=== PATIENT | female | born 1945 | race Hispanic/Latino ===

== ENCOUNTER 2021-08-19 15:47 | Inpatient (IN) | payer MEDICARE, BC ==
[2021-08-19] MEDS ORDERED: HYDROcodone/Acetaminophen 5/325 mg Tablet PO PRN (20:48)
[2021-08-19] MEDS ORDERED: Ondansetron ODT 4 MG TAB SL PRN (20:50)
[2021-08-19] MEDS ORDERED: HumaLOG 300 UNITS/3 ML VIAL SC PRN ×2 (20:50)
[2021-08-19] MEDS ORDERED: Dextrose 50% Abboject 50 ML SYRINGE SLOW IVP PRN (20:50)
[2021-08-19] MEDS: TICAGRELOR 90 MG TABLET PO SCH (21:33)
[2021-08-20 03:55] LABS: SARS-CoV-2 NAA Rapid Test Not Detected (NotDetected)
[2021-08-20] MEDS: Levothyroxine Sodium 50 MCG TAB PO SCH (05:31)
[2021-08-20 06:24] LABS: ALT (SGPT) 22 U/L (8-55); AST (SGOT) 41 U/L (5-34); Albumin 2.9 g/dL (3.4-4.8); Alkaline Phosphatase 49 U/L (40-110); Anion Gap 12 mmol/L (10-20); BUN (Urea Nitrogen) 11 mg/dL (9.8-20.1); Calc. Creatinine Clearance 43 mL/min (70-130); Calcium 7.9 mg/dL (7.8-10.44); Carbon Dioxide 21 mmol/L (23-31); Chloride 106 mmol/L (98-107); Globulin 2.9 g/dL (2.4-3.5); Glucose 93 mg/dL (83-110); Potassium 3.6 mmol/L (3.5-5.1); Protein, Total 5.8 g/dL (5.8-8.1); Sodium 135 mmol/L (136-145)
[2021-08-20 06:42] LABS: Hemoglobin 10.6 g/dL (12.0-16.0); Mean Corpuscular HGB CONC 32.2 g/dL (32.0-36.0); Mean Corpuscular Hemoglobin 44.2 pg (27.0-31.0); Mean Platelet Volume 8.6 fL (7.4-10.4); Platelet Count 75 thou/uL (130-400); RBC Distribution Width 13.9 % (11.5-14.5)
[2021-08-20 06:43] LABS: Anisocytosis SLIGHT = 6-15 cells (100X) (0-5/hpf); Hypochromia SLIGHT = 6-15 cells (100X) (0-5/hpf); Lymphocytes 38 % (21-51); MDiff Complete? YES; Macrocytosis MODERATE=16-30 cells (100X) (0-5/hpf); Monocytes 6 % (0-10); Neutrophil 56 % (42-75); Platelet Morphology Comment Appears Decreased
[2021-08-20 06:45] LABS: Manual Diff?? YES
[2021-08-20 06:48] LABS: White Blood Cell (WBC) Count 1.9 thou/uL (4.8-10.8)
[2021-08-20] MEDS: PALBOCICLIB 100 MG PO SCH (08:44)
[2021-08-20] MEDS: Ferrous Sulfate 325 MG TAB PO SCH (08:45)
[2021-08-20] MEDS: TICAGRELOR 90 MG TABLET PO SCH ×2 (08:45→20:31)
[2021-08-20] MEDS: Amiodarone 200 MG TAB PO SCH (08:45)
[2021-08-20] MEDS: Atorvastatin Calcium 40 MG TAB PO SCH (08:45)
[2021-08-20] MEDS: Folic Acid 1 MG TAB PO SCH (08:45)
[2021-08-20] MEDS ORDERED: Enoxaparin Sodium 40 MG/0.4 ML SYRINGE SC SCH (09:00)
[2021-08-20] MEDS ORDERED: LETROZOLE 2.5 MG PO SCH (09:00)
[2021-08-20] MEDS ORDERED: Letrozole 2.5 MG TAB PO SCH (16:15)
[2021-08-21] MEDS: Levothyroxine Sodium 50 MCG TAB PO SCH (05:35)
[2021-08-21] MEDS: PALBOCICLIB 100 MG PO SCH (08:16)
[2021-08-21] MEDS: Amiodarone 200 MG TAB PO SCH (08:29)
[2021-08-21] MEDS: Ferrous Sulfate 325 MG TAB PO SCH (08:29)
[2021-08-21] MEDS: Letrozole 2.5 MG TAB PO SCH (08:29)
[2021-08-21] MEDS: Atorvastatin Calcium 40 MG TAB PO SCH (08:30)
[2021-08-21] MEDS: Folic Acid 1 MG TAB PO SCH (08:30)
[2021-08-21] MEDS: TICAGRELOR 90 MG TABLET PO SCH (08:31)
[2021-08-22] MEDS: Levothyroxine Sodium 50 MCG TAB PO SCH (05:04)
[2021-08-22] MEDS: PALBOCICLIB 100 MG PO SCH (07:15)
[2021-08-22] MEDS: Letrozole 2.5 MG TAB PO SCH (07:27)
[2021-08-22] MEDS: Folic Acid 1 MG TAB PO SCH (07:27)
[2021-08-22] MEDS: Atorvastatin Calcium 40 MG TAB PO SCH (07:27)
[2021-08-22] MEDS: Ferrous Sulfate 325 MG TAB PO SCH (07:27)
[2021-08-22] MEDS: Amiodarone 200 MG TAB PO SCH (07:27)
[2021-08-22] MEDS: Fluconazole 100 MG TAB PO SCH (17:39)
[2021-08-23] MEDS: Levothyroxine Sodium 50 MCG TAB PO SCH (05:15)
[2021-08-23] MEDS: Letrozole 2.5 MG TAB PO SCH (07:57)
[2021-08-23] MEDS: Folic Acid 1 MG TAB PO SCH (07:58)
[2021-08-23] MEDS: Ferrous Sulfate 325 MG TAB PO SCH (07:58)
[2021-08-23] MEDS: Atorvastatin Calcium 40 MG TAB PO SCH (07:58)
[2021-08-23] MEDS: PALBOCICLIB 100 MG PO SCH (07:59)
[2021-08-23] MEDS: Amiodarone 200 MG TAB PO SCH (07:59)
[2021-08-23] MEDS: Fluconazole 100 MG TAB PO SCH (15:50)
[2021-08-24] MEDS: Levothyroxine Sodium 50 MCG TAB PO SCH (05:39)
[2021-08-24] MEDS: Letrozole 2.5 MG TAB PO SCH (08:18)
[2021-08-24] MEDS: Amiodarone 200 MG TAB PO SCH (08:18)
[2021-08-24] MEDS: Folic Acid 1 MG TAB PO SCH (08:18)
[2021-08-24] MEDS: Ferrous Sulfate 325 MG TAB PO SCH (08:18)
[2021-08-24] MEDS: Atorvastatin Calcium 40 MG TAB PO SCH (08:19)
[2021-08-24] MEDS: PALBOCICLIB 100 MG PO SCH (08:20)
[2021-08-24] MEDS ORDERED: Acetaminophen 325 MG TAB PO PRN (14:51)
[2021-08-24] MEDS: Fluconazole 100 MG TAB PO SCH (15:03)
[2021-08-25] MEDS: Levothyroxine Sodium 50 MCG TAB PO SCH (05:18)
[2021-08-25] MEDS: Ergocalciferol 1.25 MG(50,000 UNITS) CAP PO SCH (08:42)
[2021-08-25] MEDS: Ferrous Sulfate 325 MG TAB PO SCH (08:42)
[2021-08-25] MEDS: Atorvastatin Calcium 40 MG TAB PO SCH (08:42)
[2021-08-25] MEDS: Folic Acid 1 MG TAB PO SCH (08:42)
[2021-08-25] MEDS: Letrozole 2.5 MG TAB PO SCH (08:43)
[2021-08-25] MEDS: PALBOCICLIB 100 MG PO SCH (08:43)
[2021-08-25] MEDS: Amiodarone 200 MG TAB PO SCH (08:43)
[2021-08-25] MEDS ORDERED: Acetaminophen 325 MG TAB PO PRN (09:06)
[2021-08-25] MEDS ORDERED: HYDROcodone/Acetaminophen 5/325 mg Tablet PO PRN (09:06)
[2021-08-25] MEDS: Fluconazole 100 MG TAB PO SCH (16:54)
[2021-08-26] MEDS: Levothyroxine Sodium 50 MCG TAB PO SCH (05:14)
[2021-08-26 06:51] LABS: Anion Gap 13 mmol/L (10-20); BUN (Urea Nitrogen) 14 mg/dL (9.8-20.1); Calc. Creatinine Clearance 39 mL/min (70-130); Calcium 8.2 mg/dL (7.8-10.44); Carbon Dioxide 25 mmol/L (23-31); Chloride 98 mmol/L (98-107); Glucose 92 mg/dL (83-110); Sodium 132 mmol/L (136-145)
[2021-08-26 07:07] LABS: #Lymphocytes 0.5 thou/uL (1.20-3.40); #Monocytes 0.2 thou/uL (0.11-0.59); #Neutrophils 0.9 thou/uL (1.40-6.50); %Basophils 1.6 % (0.0-1.0); %Eosinophils 2.8 % (0.0-10.0); %Lymphocytes 29.8 % (21.0-51.0); %Monocytes 9.8 % (0.0-10.0); Hemoglobin 8.7 g/dL (12.0-16.0); Mean Corpuscular Hemoglobin 44.3 pg (27.0-31.0); Mean Platelet Volume 10.7 fL (7.4-10.4); Platelet Count 60 thou/uL (130-400); RBC Distribution Width 11.9 % (11.5-14.5); Red Blood Cell (RBC) Count 1.95 mill/uL (4.20-5.40); White Blood Cell (WBC) Count 1.6 thou/uL (4.8-10.8)
[2021-08-26] MEDS: Amiodarone 200 MG TAB PO SCH (09:16)
[2021-08-26] MEDS: Letrozole 2.5 MG TAB PO SCH (09:16)
[2021-08-26] MEDS: Ferrous Sulfate 325 MG TAB PO SCH (09:17)
[2021-08-26] MEDS: Folic Acid 1 MG TAB PO SCH (09:17)
[2021-08-26] MEDS: Atorvastatin Calcium 40 MG TAB PO SCH (09:18)
[2021-08-26] MEDS: PALBOCICLIB 100 MG PO SCH (09:18)
[2021-08-26] MEDS: Senokot S 8.6-50 MG TAB PO PRN (13:46)
[2021-08-26] MEDS: Fluconazole 100 MG TAB PO SCH (15:44)
[2021-08-26] MEDS ORDERED: Bisacodyl 10 MG SUPP PR PRN (16:09)
[2021-08-26 20:03] LABS: Bilirubin Negative (Negative); Blood, Urine Negative (Negative); Glucose, Urine (Dipstick) Negative (Negative); Ketone, Urine Negative (Negative); Leukocyte Negative (Negative); Nitrite Negative (Negative); Protein, Urine (Dipstick) Negative (Neg-Trace); Specific Gravity, Urine 1.015 (1.005-1.030); Urobilinogen 0.2 mg/dL (Less than 2)
[2021-08-26 20:09] LABS: Clarity SL HAZY (Clear)
[2021-08-26 20:10] LABS: Bacteria/HPF 3+ HPF (None Seen); Squamous Epithelial 0-3 HPF (0-3); WBC/HPF 0-3 HPF (0-3)
[2021-08-27] MEDS: Levothyroxine Sodium 50 MCG TAB PO SCH (05:33)
[2021-08-27] MEDS: Amiodarone 200 MG TAB PO SCH (08:30)
[2021-08-27] MEDS: Ferrous Sulfate 325 MG TAB PO SCH (08:30)
[2021-08-27] MEDS: Atorvastatin Calcium 40 MG TAB PO SCH (08:30)
[2021-08-27] MEDS: Letrozole 2.5 MG TAB PO SCH (08:31)
[2021-08-27] MEDS: PALBOCICLIB 100 MG PO SCH (08:35)
[2021-08-27] MEDS: Folic Acid 1 MG TAB PO SCH (08:35)
[2021-08-27] MEDS ORDERED: Acetaminophen 325 MG TAB PO PRN (09:14)
[2021-08-27] MEDS: Fluconazole 100 MG TAB PO SCH (16:13)
[2021-08-27] MEDS: EPOETIN ALFA-EPBX (ESRD) 10,000 UNIT/ML VIAL SC SCH (16:14)
[2021-08-27] MEDS: Cephalexin 500 MG CAP PO SCH (20:35)
[2021-08-27] MEDS: Senokot S 8.6-50 MG TAB PO PRN (20:35)
[2021-08-28] MEDS: Levothyroxine Sodium 50 MCG TAB PO SCH (05:34)
[2021-08-28] MEDS: Ferrous Sulfate 325 MG TAB PO SCH (08:37)
[2021-08-28] MEDS: Folic Acid 1 MG TAB PO SCH (08:37)
[2021-08-28] MEDS: Amiodarone 200 MG TAB PO SCH (08:39)
[2021-08-28] MEDS: Letrozole 2.5 MG TAB PO SCH (08:39)
[2021-08-28] MEDS: Atorvastatin Calcium 40 MG TAB PO SCH (08:40)
[2021-08-28] MEDS: Cephalexin 500 MG CAP PO SCH (08:41)
[2021-08-28] MEDS: PALBOCICLIB 100 MG PO SCH (08:41)
[2021-08-28] MEDS: Fluconazole 100 MG TAB PO SCH (17:14)
[2021-08-28] MEDS ORDERED: AMOXicillin 250 MG CAP ONE (20:50)
[2021-08-28] MEDS: AMOXicillin 250 MG CAP PO SCH (21:42)
[2021-08-29] MEDS: AMOXicillin 250 MG CAP PO SCH ×3 (05:16→21:21)
[2021-08-29] MEDS: Levothyroxine Sodium 50 MCG TAB PO SCH (05:16)
[2021-08-29] MEDS: Furosemide 20 MG TAB PO SCH (10:23)
[2021-08-29] MEDS: Amiodarone 200 MG TAB PO SCH (10:23)
[2021-08-29] MEDS: Ferrous Sulfate 325 MG TAB PO SCH (10:23)
[2021-08-29] MEDS: Atorvastatin Calcium 40 MG TAB PO SCH (10:24)
[2021-08-29] MEDS: Folic Acid 1 MG TAB PO SCH (10:24)
[2021-08-29] MEDS: Letrozole 2.5 MG TAB PO SCH (10:24)
[2021-08-29] MEDS: PALBOCICLIB 100 MG PO SCH (10:25)
[2021-08-29] MEDS: Fluconazole 100 MG TAB PO SCH (14:59)
[2021-08-30] MEDS: AMOXicillin 250 MG CAP PO SCH ×3 (05:22→21:18)
[2021-08-30] MEDS: Levothyroxine Sodium 50 MCG TAB PO SCH (05:22)
[2021-08-30 07:03] LABS: Hemoglobin 8.2 g/dL (12.0-16.0); Mean Corpuscular HGB CONC 34.2 g/dL (32.0-36.0); Mean Corpuscular Hemoglobin 44.6 pg (27.0-31.0); Platelet Count 82 thou/uL (130-400); RBC Distribution Width 11.7 % (11.5-14.5); Red Blood Cell (RBC) Count 1.85 mill/uL (4.20-5.40); White Blood Cell (WBC) Count 2.1 thou/uL (4.8-10.8)
[2021-08-30 07:04] LABS: Anion Gap 14 mmol/L (10-20); BUN (Urea Nitrogen) 13 mg/dL (9.8-20.1); Calc. Creatinine Clearance 35 mL/min (70-130); Calcium 8.1 mg/dL (7.8-10.44); Carbon Dioxide 24 mmol/L (23-31); Chloride 97 mmol/L (98-107); Glucose 87 mg/dL (83-110); Potassium 3.5 mmol/L (3.5-5.1); Sodium 131 mmol/L (136-145)
[2021-08-30 07:28] LABS: Eosinophils 6 % (0-10); Lymphocytes 35 % (21-51); MDiff Complete? YES; Manual Diff?? YES; Monocytes 9 % (0-10); Neutrophil 50 % (42-75)
[2021-08-30 07:29] LABS: Macrocytosis SLIGHT = 6-15 cells (100X) (0-5/hpf); Platelet Morphology Comment Appears Decreased
[2021-08-30 07:30] LABS: Schistocytes SLIGHT = 2-5 cells (100X) (0-1/hpf)
[2021-08-30] MEDS: Atorvastatin Calcium 40 MG TAB PO SCH (09:58)
[2021-08-30] MEDS: Folic Acid 1 MG TAB PO SCH (09:58)
[2021-08-30] MEDS: PALBOCICLIB 100 MG PO SCH (09:58)
[2021-08-30] MEDS: Letrozole 2.5 MG TAB PO SCH (09:58)
[2021-08-30] MEDS: Amiodarone 200 MG TAB PO SCH (09:58)
[2021-08-30] MEDS: Furosemide 20 MG TAB PO SCH (10:00)
[2021-08-30] MEDS: Ferrous Sulfate 325 MG TAB PO SCH (10:00)
[2021-08-30] MEDS: Sodium Chloride 0.9% 1,000 ML IV SCH ×2 (12:36→20:13)
[2021-08-30] MEDS: Fluconazole 100 MG TAB PO SCH (15:30)
[2021-08-31] MEDS: Sodium Chloride 0.9% 1,000 ML IV SCH ×3 (03:34→20:25)
[2021-08-31 05:46] VITALS: BMI 23.7
[2021-08-31] MEDS: AMOXicillin 250 MG CAP PO SCH ×3 (05:54→22:09)
[2021-08-31] MEDS: Levothyroxine Sodium 50 MCG TAB PO SCH (05:54)
[2021-08-31] MEDS: Atorvastatin Calcium 40 MG TAB PO SCH (09:24)
[2021-08-31] MEDS: Ferrous Sulfate 325 MG TAB PO SCH (09:24)
[2021-08-31] MEDS: Amiodarone 200 MG TAB PO SCH (09:24)
[2021-08-31] MEDS: Letrozole 2.5 MG TAB PO SCH (09:26)
[2021-08-31] MEDS: Folic Acid 1 MG TAB PO SCH (09:26)
[2021-08-31] MEDS: Furosemide 20 MG TAB PO SCH (09:26)
[2021-08-31] MEDS: PALBOCICLIB 100 MG PO SCH (09:27)
[2021-08-31] MEDS: Fluconazole 100 MG TAB PO SCH (15:16)
[2021-08-31 15:30] LABS: Anion Gap 15 mmol/L (10-20); BUN (Urea Nitrogen) 11 mg/dL (9.8-20.1); Calc. Creatinine Clearance 33 mL/min (70-130); Calcium 8.1 mg/dL (7.8-10.44); Carbon Dioxide 26 mmol/L (23-31); Chloride 93 mmol/L (98-107); Glucose 93 mg/dL (83-110); Potassium 3.2 mmol/L (3.5-5.1); Sodium 131 mmol/L (136-145)
[2021-09-01] MEDS: Sodium Chloride 0.9% 1,000 ML IV SCH (03:30)
[2021-09-01] MEDS: Levothyroxine Sodium 50 MCG TAB PO SCH (05:32)
[2021-09-01] MEDS: Ergocalciferol 1.25 MG(50,000 UNITS) CAP PO SCH (08:52)
[2021-09-01] MEDS: Ferrous Sulfate 325 MG TAB PO SCH (08:53)
[2021-09-01] MEDS: Furosemide 20 MG TAB PO SCH (08:53)
[2021-09-01] MEDS: Letrozole 2.5 MG TAB PO SCH (08:53)
[2021-09-01] MEDS: Amiodarone 200 MG TAB PO SCH (08:53)
[2021-09-01] MEDS: Folic Acid 1 MG TAB PO SCH (08:53)
[2021-09-01] MEDS: Atorvastatin Calcium 40 MG TAB PO SCH (08:53)
[2021-09-01] MEDS: PALBOCICLIB 100 MG PO SCH (08:54)
[2021-09-01] MEDS ORDERED: Sodium Chloride 0.9% 1,000 ML IV SCH ×2 (12:00→15:45)
[2021-09-01] MEDS: Senokot S 8.6-50 MG TAB PO PRN (12:15)
[2021-09-01 14:52] LABS: Anion Gap 16 mmol/L (10-20); BUN (Urea Nitrogen) 11 mg/dL (9.8-20.1); Calc. Creatinine Clearance 35 mL/min (70-130); Calcium 8.1 mg/dL (7.8-10.44); Carbon Dioxide 25 mmol/L (23-31); Chloride 95 mmol/L (98-107); Glucose 96 mg/dL (83-110); Potassium 3.1 mmol/L (3.5-5.1); Sodium 133 mmol/L (136-145)
[2021-09-01] MEDS ORDERED: Sodium Chloride 0.9% 1,000 ML ONE (16:44)
[2021-09-01] MEDS: Fluconazole 100 MG TAB PO SCH (16:48)
[2021-09-02] MEDS: Levothyroxine Sodium 50 MCG TAB PO SCH (05:15)
[2021-09-02] MEDS ORDERED: Potassium Chloride 20 MEQ TAB PO SCH (08:15)
[2021-09-02] MEDS: Ferrous Sulfate 325 MG TAB PO SCH (08:47)
[2021-09-02] MEDS: Folic Acid 1 MG TAB PO SCH (08:47)
[2021-09-02] MEDS: Letrozole 2.5 MG TAB PO SCH (08:47)
[2021-09-02] MEDS: Amiodarone 200 MG TAB PO SCH (08:47)
[2021-09-02] MEDS: Senokot S 8.6-50 MG TAB PO PRN (08:47)
[2021-09-02] MEDS: Atorvastatin Calcium 40 MG TAB PO SCH (08:47)
[2021-09-02] MEDS: PALBOCICLIB 100 MG PO SCH (08:48)
[2021-09-02 11:42] LABS: Anion Gap 18 mmol/L (10-20); BUN (Urea Nitrogen) 10 mg/dL (9.8-20.1); Calc. Creatinine Clearance 36 mL/min (70-130); Carbon Dioxide 23 mmol/L (23-31); Chloride 98 mmol/L (98-107); Glucose 87 mg/dL (83-110); Potassium 3.6 mmol/L (3.5-5.1); Sodium 135 mmol/L (136-145)
[2021-09-02] MEDS: Fluconazole 100 MG TAB PO SCH (16:50)
[2021-09-03] MEDS: Levothyroxine Sodium 50 MCG TAB PO SCH (05:13)
[2021-09-03] MEDS: Amiodarone 200 MG TAB PO SCH (08:47)
[2021-09-03] MEDS: Ferrous Sulfate 325 MG TAB PO SCH (08:47)
[2021-09-03] MEDS: Atorvastatin Calcium 40 MG TAB PO SCH (08:48)
[2021-09-03] MEDS: Folic Acid 1 MG TAB PO SCH (08:48)
[2021-09-03] MEDS: Letrozole 2.5 MG TAB PO SCH (08:49)
[2021-09-03] MEDS: PALBOCICLIB 100 MG PO SCH (10:36)
[2021-09-03] MEDS: EPOETIN ALFA-EPBX (ESRD) 10,000 UNIT/ML VIAL SC SCH ×2 (16:00→18:18)
[2021-09-03] MEDS: Fluconazole 100 MG TAB PO SCH (16:03)
[2021-09-04] MEDS: Levothyroxine Sodium 50 MCG TAB PO SCH (05:23)
[2021-09-04 08:17] VITALS: BP 125/61; TEMP 98
[2021-09-04] MEDS: Folic Acid 1 MG TAB PO SCH (09:27)
[2021-09-04] MEDS: Amiodarone 200 MG TAB PO SCH (09:28)
[2021-09-04] MEDS: Letrozole 2.5 MG TAB PO SCH (09:28)
[2021-09-04] MEDS: Ferrous Sulfate 325 MG TAB PO SCH (09:28)
[2021-09-04] MEDS: Atorvastatin Calcium 40 MG TAB PO SCH (09:28)
== END 2021-09-04 13:50 | disposition hospice, home (50) | DRG 368 ==
LOC: NAV ACUTE 18:48
PROVIDERS: ADMIT Family Medicine; ATTEND Family Medicine
DX: B37.81 Candidal esophagitis (principal); I62.00 Nontraumatic subdural hemorrhage, unspecified; I50.22 Chronic systolic (congestive) heart failure; I13.0 Hypertensive heart and chronic kidney disease with heart failure and stage 1 through stage 4 chronic kidney disease, or unspecified chronic kidney disease; C79.51 Secondary malignant neoplasm of bone; N39.0 Urinary tract infection, site not specified; J90 Pleural effusion, not elsewhere classified; N17.9 Acute kidney failure, unspecified; R53.81 Other malaise; I25.10 Atherosclerotic heart disease of native coronary artery without angina pectoris; E78.5 Hyperlipidemia, unspecified; N18.30 Chronic kidney disease, stage 3 unspecified; K21.9 Gastro-esophageal reflux disease without esophagitis; F03.90 Unspecified dementia, unspecified severity, without behavioral disturbance, psychotic disturbance, mood disturbance, and anxiety; M19.90 Unspecified osteoarthritis, unspecified site; I48.91 Unspecified atrial fibrillation; G89.29 Other chronic pain; E11.22 Type 2 diabetes mellitus with diabetic chronic kidney disease; D69.6 Thrombocytopenia, unspecified; I25.5 Ischemic cardiomyopathy; C50.919 Malignant neoplasm of unspecified site of unspecified female breast; N18.31 Chronic kidney disease, stage 3a; R44.1 Visual hallucinations; Z66 Do not resuscitate; Z20.822 Contact with and (suspected) exposure to COVID-19; B95.2 Enterococcus as the cause of diseases classified elsewhere; E87.6 Hypokalemia; Z51.5 Encounter for palliative care; Z95.1 Presence of aortocoronary bypass graft; Z95.5 Presence of coronary angioplasty implant and graft; Z95.810 Presence of automatic (implantable) cardiac defibrillator; Z85.3 Personal history of malignant neoplasm of breast; Z85.830 Personal history of malignant neoplasm of bone; Z88.5 Allergy status to narcotic agent
CPT/HCPCS: 36416; 71045; 80048; 80053; 81001; 85025; 87077; 87086; 87186; 36415-59; J7050; Q5105; U0002; U0003; U0005